=== PATIENT | female | born 1990 | race Caucasian/White ===

== ENCOUNTER → 2023-06-24 06:45 | Outpatient (REF) | payer OTHER, SELFPAY | LOC: PNTC 06:45 | PROVIDERS: ATTENDING PHYSICIAN Nurse Practitioner Obstetrics & Gynecology | DX: O36.80X0 Pregnancy with inconclusive fetal viability, not applicable or unspecified (principal) | CPT/HCPCS: 76801 ==

== ENCOUNTER → 2023-07-07 17:32 | Outpatient (REF) | payer OTHER, SELFPAY | LOC: PNTC 17:32 | PROVIDERS: ATTENDING PHYSICIAN Nurse Practitioner Obstetrics & Gynecology | DX: Z36.82 Encounter for antenatal screening for nuchal translucency (principal); Z36.0 Encounter for antenatal screening for chromosomal anomalies | CPT/HCPCS: 76801; 76813 ==

== ENCOUNTER → 2023-08-03 07:05 | Outpatient (REF) | payer OTHER, SELFPAY | LOC: PNTC 07:05 | PROVIDERS: ATTENDING PHYSICIAN Nurse Practitioner Obstetrics & Gynecology | DX: O09.211 Supervision of pregnancy with history of pre-term labor, first trimester (principal) | CPT/HCPCS: 76805; 76817 ==

== ENCOUNTER → 2023-08-31 16:38 | Outpatient (REF) | payer OTHER, SELFPAY | LOC: PNTC 16:38 | PROVIDERS: ATTENDING PHYSICIAN Nurse Practitioner Obstetrics & Gynecology | DX: Z87.51 Personal history of pre-term labor (principal) | CPT/HCPCS: 76811; 76817 ==

== ENCOUNTER → 2023-09-29 17:05 | Outpatient (REF) | payer OTHER, SELFPAY | LOC: PNTC 17:05 | PROVIDERS: ATTENDING PHYSICIAN Nurse Practitioner Obstetrics & Gynecology | DX: Z87.51 Personal history of pre-term labor (principal) | CPT/HCPCS: 76816; 76817 ==

== ENCOUNTER → 2023-11-16 06:59 | Outpatient (REF) | payer OTHER, SELFPAY | LOC: PNTC 06:59 | PROVIDERS: ATTENDING PHYSICIAN Nurse Practitioner Obstetrics & Gynecology | DX: O09.219 Supervision of pregnancy with history of pre-term labor, unspecified trimester (principal) | CPT/HCPCS: 76816 ==